=== PATIENT | female | born 1990 | race Caucasian/White ===

== ENCOUNTER 2021-10-26 17:11 | Inpatient (IN) | payer OTHER ==
[~2021-10-26] VITALS: Ht 162.6 cm; Wt 68.2 kg
[2021-10-26] MEDS ORDERED: KETOROLAC TROMETHAMINE 30 MG/ML VIAL IVP ONE (18:15)
[2021-10-26] MEDS ORDERED: ONDANSETRON HCL 4 MG/2 ML VIAL IVP ONE (18:15)
[2021-10-26] MEDS ORDERED: SODIUM CHLORIDE 0.9% 1,000 ML IV ONE (18:15)
[2021-10-26 18:39] LABS: COVID AG,FIA SOURCE NASOPHARYNGEAL
[2021-10-26 18:54] LABS: BASOPHILS % (AUTO) 0.2 % (0.0-2.0); EOSINOPHILS % (AUTO) 0 % (1.0-6.0); HEMATOCRIT 34.6 % (36-46); LYMPHOCYTES # (AUTO) 0.7 K/uL (1.0-4.8); LYMPHOCYTES % (AUTO) 6.6 % (22.0-44.0); MEAN CORPUSCULAR HEMOGLOBIN 24.2 pg (26.0-34.0); MEAN CORPUSCULAR HGB CONC 31.7 G/dL (31.0-37.0); MEAN CORPUSCULAR VOLUME 76 fL (80-100); MONOCYTES # (AUTO) 0.2 K/uL (0.1-1.0); MONOCYTES % (AUTO) 1.7 % (2.0-9.0); NEUTROPHILS # (AUTO) 9.1 K/uL (1.8-7.7); PLATELET COUNT (AUTO) 323 K/uL (150-450); RED BLOOD CELL COUNT(AUTO) 4.53 MIL/uL (4.00-5.20); RED CELL DISTRIBUTION WIDTH 18.2 % (11.5-14.5)
[2021-10-26 19:00] LABS: NEUTROPHILS % (AUTO) 91.5 % (40.0-70.0)
[2021-10-26 19:10] LABS: ANION GAP 12 mmol/L (8-16); CALCIUM, TOTAL 9.4 mg/dL (8.8-10.5); CARBON DIOXIDE 26 mmol/L (22-29); CHLORIDE 101 mmol/L (98-107); GLOMERULAR FILTR. RATE CALC > 60 mL/min (>60); GLUCOSE,RANDOM 85 mg/dL (70-110); POTASSIUM 3.5 mmol/L (3.5-5.1); SODIUM SERUM 139 mmol/L (136-145); UREA NITROGEN, BLOOD 9 mg/dL (7-18)
[2021-10-26 19:15] LABS: ALANINE AMINOTRANSFERASE 22 U/L (12-78); ALBUMIN 3.6 g/dL (3.4-5.0); ALKALINE PHOSPHATASE 79 U/L (46-116); ASPARTATE AMINOTRANSFERASE 20 U/L (15-37); BILIRUBIN,TOTAL 0.3 mg/dL (0.1-1.0); TOTAL PROTEIN, SERUM 7.9 g/dL (6.4-8.2)
[2021-10-26] MEDS ORDERED: ACETAMINOPHEN 325 MG TABLET PO PRN (19:30)
[2021-10-26] MEDS ORDERED: ONDANSETRON HCL 4 MG/2 ML VIAL IVP PRN (19:30)
[2021-10-26] MEDS ORDERED: MAGNESIUM HYDROXIDE SUSPENSION 30 ML UDCUP PO PRN (19:30)
[2021-10-26 22:15] VITALS: BP 122/75
[2021-10-26 23:15] VITALS: BP 145/94
[2021-10-26] MEDS ORDERED: INFLUENZA VIRUS VACCINE QVS 2021-22 (6MO+)/PF 60 MCG/0.5 ML SYRINGE IM. ONE (23:15)
[2021-10-26] MEDS ORDERED: QUET100T PO (23:18)
[2021-10-27] VITALS (7 sets, daily range): BP systolic 131–144; BP diastolic 80–94
[2021-10-27] MEDS: ONDANSETRON HCL 4 MG/2 ML VIAL IVP PRN ×2 (01:45→12:12)
[2021-10-27] MEDS: LORazepam 2 MG/ML VIAL IVP PRN ×2 (01:45→07:38)
[2021-10-27 02:41] LABS: AMPHET/METH SCREEN,URINE POSITIVE (NEGATIVE); BARBITURATE SCREEN, URINE NEGATIVE (NEGATIVE); BENZODIAZEPINES SCREEN,URINE NEGATIVE (NEGATIVE); CANNABINOID SCREEN,URINE NEGATIVE (NEGATIVE); COCAINE SCREEN,URINE NEGATIVE (NEGATIVE); METHADONE SCREEN, URINE NEGATIVE (NEGATIVE); OPIATE SCREEN,URINE NEGATIVE (NEGATIVE)
[2021-10-27 02:46] LABS: PHENCYCLIDINE SCREEN,URINE NEGATIVE (NEGATIVE)
[2021-10-27] MEDS: FAMOTIDINE 20 MG TABLET PO SCH (12:12)
[2021-10-27] MEDS: MULTIVITAMINS WITH MINERALS, THERAPEUTIC TABLET PO SCH (12:13)
[2021-10-27] MEDS ORDERED: SODIUM CHLORIDE 0.9% 1,000 ML IV ONE (18:45)
[2021-10-28] MEDS: ACETAMINOPHEN 325 MG TABLET PO PRN ×5 (00:23→23:54)
[2021-10-28 04:10] VITALS: BP 137/88
[2021-10-28 06:23] LABS: BASOPHILS % (AUTO) 0.4 % (0.0-2.0); EOSINOPHILS % (AUTO) 0.1 % (1.0-6.0); HEMATOCRIT 36.8 % (36-46); LYMPHOCYTES # (AUTO) 1.7 K/uL (1.0-4.8); LYMPHOCYTES % (AUTO) 15.8 % (22.0-44.0); MEAN CORPUSCULAR HEMOGLOBIN 24.8 pg (26.0-34.0); MEAN CORPUSCULAR HGB CONC 32.5 G/dL (31.0-37.0); MEAN CORPUSCULAR VOLUME 76 fL (80-100); MONOCYTES % (AUTO) 9.4 % (2.0-9.0); NEUTROPHILS # (AUTO) 7.8 K/uL (1.8-7.7); NEUTROPHILS % (AUTO) 74.3 % (40.0-70.0); PLATELET COUNT (AUTO) 325 K/uL (150-450); RED BLOOD CELL COUNT(AUTO) 4.82 MIL/uL (4.00-5.20); RED CELL DISTRIBUTION WIDTH 18.5 % (11.5-14.5)
[2021-10-28 06:40] LABS: ALANINE AMINOTRANSFERASE 19 U/L (12-78); ALBUMIN 3.5 g/dL (3.4-5.0); ALKALINE PHOSPHATASE 67 U/L (46-116); ANION GAP 6 mmol/L (8-16); ASPARTATE AMINOTRANSFERASE 15 U/L (15-37); BILIRUBIN,TOTAL 0.3 mg/dL (0.1-1.0); CALCIUM, TOTAL 9.2 mg/dL (8.8-10.5); CARBON DIOXIDE 30 mmol/L (22-29); CHLORIDE 100 mmol/L (98-107); CREATININE 0.77 mg/dL (0.60-1.30); GLOMERULAR FILTR. RATE CALC > 60 mL/min (>60); GLUCOSE,RANDOM 96 mg/dL (70-110); POTASSIUM 3.2 mmol/L (3.5-5.1); SODIUM SERUM 136 mmol/L (136-145); TOTAL PROTEIN, SERUM 7.6 g/dL (6.4-8.2); UREA NITROGEN, BLOOD 6 mg/dL (7-18)
[2021-10-28 08:20] VITALS: BP 133/77
[2021-10-28] MEDS: MULTIVITAMINS WITH MINERALS, THERAPEUTIC TABLET PO SCH (08:22)
[2021-10-28] MEDS: FAMOTIDINE 20 MG TABLET PO SCH (08:22)
[2021-10-28 11:20] VITALS: BP 128/74
[2021-10-28] MEDS ORDERED: POTASSIUM CHLORIDE 20 MEQ ER TABLET PO ONE (14:15)
[2021-10-28] MEDS ORDERED: IBUPROFEN 600 MG TABLET PO PRN (15:30)
[2021-10-28] MEDS: KETOROLAC TROMETHAMINE 15 MG/ML VIAL IVP PRN ×2 (15:39→22:08)
[2021-10-28 16:00] VITALS: BP 128/76
[2021-10-28] MEDS ORDERED: KETOROLAC TROMETHAMINE 15 MG/ML VIAL IVP SCH (18:00)
[2021-10-28] MEDS: LORazepam 2 MG/ML VIAL IVP PRN (18:23)
[2021-10-28 20:35] VITALS: BP 137/85
[2021-10-28] MEDS: ZOLPIDEM TARTRATE 5 MG TABLET PO PRN (22:11)
[2021-10-29 03:41] VITALS: BP 144/84
[2021-10-29] MEDS: KETOROLAC TROMETHAMINE 15 MG/ML VIAL IVP PRN ×3 (04:09→21:10)
[2021-10-29 06:27] LABS: BASOPHILS % (AUTO) 0.6 % (0.0-2.0); EOSINOPHILS % (AUTO) 0.2 % (1.0-6.0); HEMATOCRIT 37.3 % (36-46); HEMOGLOBIN 11.9 g/dL (12.0-16.0); LYMPHOCYTES % (AUTO) 18.2 % (22.0-44.0); MEAN CORPUSCULAR HEMOGLOBIN 24.2 pg (26.0-34.0); MEAN CORPUSCULAR HGB CONC 31.9 G/dL (31.0-37.0); MEAN CORPUSCULAR VOLUME 76 fL (80-100); MONOCYTES # (AUTO) 1.2 K/uL (0.1-1.0); MONOCYTES % (AUTO) 10.5 % (2.0-9.0); NEUTROPHILS # (AUTO) 7.9 K/uL (1.8-7.7); NEUTROPHILS % (AUTO) 70.5 % (40.0-70.0); PLATELET COUNT (AUTO) 317 K/uL (150-450); RED BLOOD CELL COUNT(AUTO) 4.91 MIL/uL (4.00-5.20); RED CELL DISTRIBUTION WIDTH 18.2 % (11.5-14.5)
[2021-10-29 06:56] LABS: ANION GAP 3 mmol/L (8-16); CALCIUM, TOTAL 9.1 mg/dL (8.8-10.5); CARBON DIOXIDE 28 mmol/L (22-29); CHLORIDE 103 mmol/L (98-107); CREATININE 0.77 mg/dL (0.60-1.30); GLOMERULAR FILTR. RATE CALC > 60 mL/min (>60); GLUCOSE,RANDOM 101 mg/dL (70-110); POTASSIUM 3.3 mmol/L (3.5-5.1); SODIUM SERUM 134 mmol/L (136-145); UREA NITROGEN, BLOOD 3 mg/dL (7-18)
[2021-10-29] MEDS: FAMOTIDINE 20 MG TABLET PO SCH (08:39)
[2021-10-29] MEDS: MULTIVITAMINS WITH MINERALS, THERAPEUTIC TABLET PO SCH (08:39)
[2021-10-29] MEDS: LORazepam 2 MG/ML VIAL IVP PRN ×2 (08:40→20:05)
[2021-10-29] MEDS ORDERED: POTASSIUM CHLORIDE 20 MEQ ER TABLET PO PRN (14:45)
[2021-10-29] MEDS ORDERED: SODIUM CHLORIDE 0.9% 250 ML IV ONE (14:58)
[2021-10-29] MEDS: POTASSIUM CHL 10 MEQ/WATER 50 ML IV PRN ×3 (15:01→21:09)
[2021-10-29] MEDS: QUEtiapine FUMARATE 25 MG TABLET PO SCH (16:05)
[2021-10-29 19:30] VITALS: BP 127/77
[2021-10-29] MEDS ORDERED: SODIUM CHLORIDE 0.9% 1,000 ML ONE (19:47)
[2021-10-29] MEDS: ZOLPIDEM TARTRATE 5 MG TABLET PO PRN (23:25)
[2021-10-30] MEDS: KETOROLAC TROMETHAMINE 15 MG/ML VIAL IVP PRN ×2 (04:05→22:31)
[2021-10-30 04:16] VITALS: BP 124/76
[2021-10-30] MEDS: LORazepam 2 MG/ML VIAL IVP PRN ×3 (05:51→19:44)
[2021-10-30 06:17] LABS: BASOPHILS % (AUTO) 0.6 % (0.0-2.0); EOSINOPHILS % (AUTO) 0.6 % (1.0-6.0); HEMATOCRIT 36.7 % (36-46); HEMOGLOBIN 11.7 g/dL (12.0-16.0); LYMPHOCYTES # (AUTO) 2.1 K/uL (1.0-4.8); LYMPHOCYTES % (AUTO) 19.3 % (22.0-44.0); MEAN CORPUSCULAR HEMOGLOBIN 24.3 pg (26.0-34.0); MEAN CORPUSCULAR VOLUME 76 fL (80-100); MONOCYTES # (AUTO) 0.9 K/uL (0.1-1.0); MONOCYTES % (AUTO) 8.3 % (2.0-9.0); NEUTROPHILS # (AUTO) 7.8 K/uL (1.8-7.7); NEUTROPHILS % (AUTO) 71.2 % (40.0-70.0); PLATELET COUNT (AUTO) 298 K/uL (150-450); RED BLOOD CELL COUNT(AUTO) 4.82 MIL/uL (4.00-5.20); RED CELL DISTRIBUTION WIDTH 17.9 % (11.5-14.5)
[2021-10-30 06:39] LABS: ANION GAP 3 mmol/L (8-16); CALCIUM, TOTAL 9.1 mg/dL (8.8-10.5); CARBON DIOXIDE 27 mmol/L (22-29); CHLORIDE 107 mmol/L (98-107); CREATININE 0.81 mg/dL (0.60-1.30); GLOMERULAR FILTR. RATE CALC > 60 mL/min (>60); GLUCOSE,RANDOM 117 mg/dL (70-110); POTASSIUM 3.9 mmol/L (3.5-5.1); SODIUM SERUM 137 mmol/L (136-145); UREA NITROGEN, BLOOD 4 mg/dL (7-18)
[2021-10-30 07:57] VITALS: BP 127/90
[2021-10-30] MEDS: MULTIVITAMINS WITH MINERALS, THERAPEUTIC TABLET PO SCH (10:47)
[2021-10-30] MEDS: QUEtiapine FUMARATE 25 MG TABLET PO SCH (10:47)
[2021-10-30] MEDS: FAMOTIDINE 20 MG TABLET PO SCH (10:47)
[2021-10-30 19:38] VITALS: BP 131/97
[2021-10-30] MEDS: ZOLPIDEM TARTRATE 5 MG TABLET PO PRN (19:44)
[2021-10-31 04:35] VITALS: BP 133/93
[2021-10-31 07:33] VITALS: BP 107/79
[2021-10-31] MEDS: MULTIVITAMINS WITH MINERALS, THERAPEUTIC TABLET PO SCH (08:39)
[2021-10-31] MEDS: FAMOTIDINE 20 MG TABLET PO SCH (08:39)
[2021-10-31] MEDS: QUEtiapine FUMARATE 25 MG TABLET PO SCH (08:39)
[2021-10-31] MEDS: LORazepam 2 MG/ML VIAL IVP PRN (09:04)
[2021-10-31] MEDS: KETOROLAC TROMETHAMINE 15 MG/ML VIAL IVP PRN (15:52)
[2021-10-31] MEDS: ACETAMINOPHEN 325 MG TABLET PO PRN (19:43)
[2021-10-31 19:45] VITALS: BP 133/62
[2021-10-31] MEDS: LORazepam 1 MG TABLET PO PRN (21:50)
[2021-10-31] MEDS: ZOLPIDEM TARTRATE 5 MG TABLET PO PRN (21:50)
[2021-11-01 04:10] VITALS: BP 135/78
[2021-11-01 07:21] LABS: BASOPHILS % (AUTO) 0.6 % (0.0-2.0); EOSINOPHILS % (AUTO) 0.9 % (1.0-6.0); HEMATOCRIT 37.6 % (36-46); HEMOGLOBIN 11.8 g/dL (12.0-16.0); LYMPHOCYTES # (AUTO) 2.4 K/uL (1.0-4.8); LYMPHOCYTES % (AUTO) 17.8 % (22.0-44.0); MEAN CORPUSCULAR HEMOGLOBIN 24.1 pg (26.0-34.0); MEAN CORPUSCULAR HGB CONC 31.5 G/dL (31.0-37.0); MEAN CORPUSCULAR VOLUME 77 fL (80-100); MONOCYTES # (AUTO) 0.9 K/uL (0.1-1.0); MONOCYTES % (AUTO) 6.4 % (2.0-9.0); NEUTROPHILS % (AUTO) 74.3 % (40.0-70.0); PLATELET COUNT (AUTO) 324 K/uL (150-450); RED BLOOD CELL COUNT(AUTO) 4.91 MIL/uL (4.00-5.20); RED CELL DISTRIBUTION WIDTH 18.7 % (11.5-14.5)
[2021-11-01 07:36] LABS: ALANINE AMINOTRANSFERASE 14 U/L (12-78); ALBUMIN 3.1 g/dL (3.4-5.0); ALKALINE PHOSPHATASE 63 U/L (46-116); ANION GAP 7 mmol/L (8-16); ASPARTATE AMINOTRANSFERASE 9 U/L (15-37); BILIRUBIN,TOTAL 0.3 mg/dL (0.1-1.0); CALCIUM, TOTAL 8.9 mg/dL (8.8-10.5); CARBON DIOXIDE 27 mmol/L (22-29); CHLORIDE 103 mmol/L (98-107); CREATININE 0.77 mg/dL (0.60-1.30); GLOMERULAR FILTR. RATE CALC > 60 mL/min (>60); GLUCOSE,RANDOM 111 mg/dL (70-110); POTASSIUM 4.3 mmol/L (3.5-5.1); SODIUM SERUM 137 mmol/L (136-145); TOTAL PROTEIN, SERUM 6.9 g/dL (6.4-8.2); UREA NITROGEN, BLOOD 7 mg/dL (7-18)
[2021-11-01 07:50] VITALS: BP 117/80
[2021-11-01] MEDS: MULTIVITAMINS WITH MINERALS, THERAPEUTIC TABLET PO SCH (08:47)
[2021-11-01] MEDS: FAMOTIDINE 20 MG TABLET PO SCH (08:47)
[2021-11-01] MEDS: QUEtiapine FUMARATE 25 MG TABLET PO SCH (08:47)
[2021-11-01] MEDS: LORazepam 1 MG TABLET PO PRN ×2 (08:53→20:17)
[2021-11-01 15:35] VITALS: BP 121/72
[2021-11-01 19:36] VITALS: BP 136/74
[2021-11-01] MEDS: KETOROLAC TROMETHAMINE 15 MG/ML VIAL IVP PRN (19:41)
[2021-11-01] MEDS: ZOLPIDEM TARTRATE 5 MG TABLET PO PRN (20:17)
[2021-11-01] MEDS: QUEtiapine FUMARATE 100 MG TABLET PO SCH (20:17)
[2021-11-02 04:30] VITALS: BP 128/84
[2021-11-02 08:08] VITALS: BP 111/77
[2021-11-02] MEDS: FAMOTIDINE 20 MG TABLET PO SCH (08:36)
[2021-11-02] MEDS: MULTIVITAMINS WITH MINERALS, THERAPEUTIC TABLET PO SCH (08:36)
[2021-11-02] MEDS: QUEtiapine FUMARATE 25 MG TABLET PO SCH (08:36)
[2021-11-02] MEDS: KETOROLAC TROMETHAMINE 15 MG/ML VIAL IVP PRN (08:38)
[2021-11-02 10:30] LABS: APPEARANCE,URINE CLEAR (CLEAR); BILIRUBIN,URINE NEGATIVE (NEGATIVE); GLUCOSE, URINE (UA) NEGATIVE (NEGATIVE); KETONES,URINE NEGATIVE (NEGATIVE); LEUKOCYTE ESTERASE ,URINE NEGATIVE (NEGATIVE); NITRATE,URINE NEGATIVE (NEGATIVE); OCCULT BLOOD,URINE MODERATE (NEGATIVE); PH,URINE 7.5 (5.0-8.0); PROTEIN,URINE NEGATIVE (NEGATIVE); UROBILINOGEN,URINE 0.2 mg/dL (<=1.0)
[2021-11-02 10:48] LABS: BACTERIA,URINE None Seen /HPF (None Seen); RBC,URINE 0-2 /HPF (0-2); SQUAMOUS EPITHELIAL CELL,UR Few /LPF (None Seen); WBC,URINE None Seen /HPF (0-5)
[2021-11-02] MEDS ORDERED: LOPERAMIDE HCL 2 MG CAPSULE PO PRN (11:45)
[2021-11-02] MEDS ORDERED: ACETAMINOPHEN 325 MG TABLET PO PRN (11:45)
[2021-11-02 12:08] LABS: EOSINOPHILS % (AUTO) 1.7 % (1.0-6.0); HEMATOCRIT 35.5 % (36-46); HEMOGLOBIN 11.5 g/dL (12.0-16.0); LYMPHOCYTES # (AUTO) 1.5 K/uL (1.0-4.8); MEAN CORPUSCULAR HEMOGLOBIN 24.5 pg (26.0-34.0); MEAN CORPUSCULAR HGB CONC 32.3 G/dL (31.0-37.0); MEAN CORPUSCULAR VOLUME 76 fL (80-100); MONOCYTES # (AUTO) 0.6 K/uL (0.1-1.0); MONOCYTES % (AUTO) 6.1 % (2.0-9.0); NEUTROPHILS # (AUTO) 7.5 K/uL (1.8-7.7); NEUTROPHILS % (AUTO) 76.2 % (40.0-70.0); PLATELET COUNT (AUTO) 313 K/uL (150-450); RED BLOOD CELL COUNT(AUTO) 4.68 MIL/uL (4.00-5.20); RED CELL DISTRIBUTION WIDTH 18.1 % (11.5-14.5)
[2021-11-02 12:26] LABS: ALANINE AMINOTRANSFERASE 13 U/L (12-78); ALBUMIN 3.2 g/dL (3.4-5.0); ALKALINE PHOSPHATASE 58 U/L (46-116); ANION GAP 6 mmol/L (8-16); ASPARTATE AMINOTRANSFERASE 10 U/L (15-37); BILIRUBIN,TOTAL 0.3 mg/dL (0.1-1.0); CALCIUM, TOTAL 9.4 mg/dL (8.8-10.5); CARBON DIOXIDE 27 mmol/L (22-29); CHLORIDE 105 mmol/L (98-107); CREATININE 0.71 mg/dL (0.60-1.30); GLOMERULAR FILTR. RATE CALC > 60 mL/min (>60); GLUCOSE,RANDOM 110 mg/dL (70-110); POTASSIUM 4.2 mmol/L (3.5-5.1); SODIUM SERUM 138 mmol/L (136-145); TOTAL PROTEIN, SERUM 6.9 g/dL (6.4-8.2); UREA NITROGEN, BLOOD 10 mg/dL (7-18)
[2021-11-02 15:42] VITALS: BP 103/56
[2021-11-02 19:40] VITALS: BP 130/64
[2021-11-02] MEDS: QUEtiapine FUMARATE 100 MG TABLET PO SCH (20:03)
[2021-11-02] MEDS: ZOLPIDEM TARTRATE 5 MG TABLET PO PRN (20:03)
[2021-11-03] MEDS ORDERED: DiphenhydrAMINE HCL 25 MG CAPSULE PO ONE
[2021-11-03] MEDS: MULTIVITAMINS WITH MINERALS, THERAPEUTIC TABLET PO SCH (08:04)
[2021-11-03] MEDS: QUEtiapine FUMARATE 25 MG TABLET PO SCH (08:04)
[2021-11-03] MEDS: FAMOTIDINE 20 MG TABLET PO SCH (08:04)
[2021-11-03 08:16] VITALS: BP 115/71
[2021-11-03] MEDS ORDERED: RISP2TAB45 PO (10:57)
[2021-11-03] MEDS ORDERED: RISP1TAB48 PO (10:57)
== END 2021-11-03 11:45 | DRG 897 ==
LOC: EMS 17:11 → 6S 20:00
PROVIDERS: ADMIT Internal Medicine; ATTEND Internal Medicine
DX: F11.23 Opioid dependence with withdrawal (principal); R45.851 Suicidal ideations; F31.4 Bipolar disorder, current episode depressed, severe, without psychotic features; R55 Syncope and collapse; F10.139 Alcohol abuse with withdrawal, unspecified; F17.210 Nicotine dependence, cigarettes, uncomplicated; Z20.822 Contact with and (suspected) exposure to COVID-19; F10.10 Alcohol abuse, uncomplicated; Z28.21 Immunization not carried out because of patient refusal
CPT/HCPCS: 80048; 80053; 80307; 81001; 83735; 84145; 84702; 85025; 87045; 93005; 99285; J1885; J2060; J2405; J3480; J7030; J7050

== ENCOUNTER 2021-11-19 15:06 | Inpatient (IN) | payer OTHER ==
[~2021-11-19] VITALS: Ht 162.6 cm; Wt 73.1 kg
[~2021-11-19 15:06] MED LIST: RISP1TAB48 PO; RISP2TAB45 PO
[2021-11-19] MEDS ORDERED: CefTRIAXone SODIUM 2 GM in DEXTROSE 5%-WATER 50 ML IV ONE (16:00)
[2021-11-19 16:29] LABS: BASOPHILS % (AUTO) 0.4 % (0.0-2.0); EOSINOPHILS % (AUTO) 0.5 % (1.0-6.0); HEMATOCRIT 30.4 % (36-46); HEMOGLOBIN 9.7 g/dL (12.0-16.0); LYMPHOCYTES # (AUTO) 1.2 K/uL (1.0-4.8); LYMPHOCYTES % (AUTO) 14.5 % (22.0-44.0); MEAN CORPUSCULAR HEMOGLOBIN 24.6 pg (26.0-34.0); MEAN CORPUSCULAR HGB CONC 31.9 G/dL (31.0-37.0); MEAN CORPUSCULAR VOLUME 77 fL (80-100); MONOCYTES # (AUTO) 0.6 K/uL (0.1-1.0); MONOCYTES % (AUTO) 7.5 % (2.0-9.0); NEUTROPHILS # (AUTO) 6.4 K/uL (1.8-7.7); NEUTROPHILS % (AUTO) 77.1 % (40.0-70.0); PLATELET COUNT (AUTO) 244 K/uL (150-450); RED BLOOD CELL COUNT(AUTO) 3.93 MIL/uL (4.00-5.20); RED CELL DISTRIBUTION WIDTH 18.8 % (11.5-14.5)
[2021-11-19] MEDS ORDERED: KETOROLAC TROMETHAMINE 30 MG/ML VIAL IVP ONE (16:30)
[2021-11-19 17:13] LABS: ANION GAP 9 mmol/L (8-16); CALCIUM, TOTAL 9.1 mg/dL (8.8-10.5); CARBON DIOXIDE 27 mmol/L (22-29); CHLORIDE 108 mmol/L (98-107); CREATININE 0.65 mg/dL (0.60-1.30); GLOMERULAR FILTR. RATE CALC > 60 mL/min (>60); GLUCOSE,RANDOM 99 mg/dL (70-110); POTASSIUM 4.4 mmol/L (3.5-5.1); SODIUM SERUM 144 mmol/L (136-145); UREA NITROGEN, BLOOD 10 mg/dL (7-18)
[2021-11-19 17:20] LABS: ALANINE AMINOTRANSFERASE 50 U/L (12-78); ALKALINE PHOSPHATASE 68 U/L (46-116); ASPARTATE AMINOTRANSFERASE 20 U/L (15-37); BILIRUBIN,TOTAL 0.2 mg/dL (0.1-1.0); TOTAL PROTEIN, SERUM 6.6 g/dL (6.4-8.2)
[2021-11-19] MEDS ORDERED: IOHEXOL 350 MG/ML 100 ML VIAL ONE (17:25)
[2021-11-19] MEDS ORDERED: SODIUM CHLORIDE 0.9% 100 ML ONE (17:25)
[2021-11-19] MEDS ORDERED: AMPICILLIN SODIUM/SULBACTAM NA 3 GM in SODIUM CHLORIDE 0.9% 100 ML IV ONE (18:30)
[2021-11-19] MEDS ORDERED: MethylPREDNISolone SOD SUCC 125 MG/2 ML VIAL IVP ONE (18:30)
[2021-11-19] MEDS ORDERED: MORPHINE SULFATE 4 MG/ML SYRINGE IVP ONE (18:30)
[2021-11-19] MEDS ORDERED: ONDANSETRON HCL 4 MG/2 ML VIAL IVP PRN (18:45)
[2021-11-19] MEDS ORDERED: 0.9% SODIUM CHLORIDE 10 ML SYRINGE IVP PRN (18:45)
[2021-11-19] MEDS ORDERED: ACETAMINOPHEN 325 MG TABLET PO PRN ×2 (18:45→21:30)
[2021-11-19 19:51] LABS: COVID AG,FIA SOURCE NASOPHARYNGEAL
[2021-11-19] MEDS: OxyCODONE HCL/ACETAMINOPHEN 5-325 MG TABLET PO PRN (21:26)
[2021-11-19] MEDS ORDERED: ZOLPIDEM TARTRATE 5 MG TABLET PO PRN (21:30)
[2021-11-19] MEDS ORDERED: MAGNESIUM HYDROXIDE SUSPENSION 30 ML UDCUP PO PRN (21:30)
[2021-11-19] MEDS ORDERED: SODIUM CHLORIDE 0.9% 250 ML IV ONE (22:52)
[2021-11-19 22:56] VITALS: BP 124/73
[2021-11-20] MEDS: OxyCODONE HCL/ACETAMINOPHEN 5-325 MG TABLET PO PRN ×5 (00:28→20:23)
[2021-11-20] MEDS: AMPICILLIN SODIUM/SULBACTAM NA 1.5 GM in SODIUM CHLORIDE 0.9% 50 ML IV SCH ×3 (01:47→17:32)
[2021-11-20 05:05] VITALS: BP 109/62
[2021-11-20 08:04] VITALS: BP 107/57
[2021-11-20] MEDS: FAMOTIDINE 20 MG TABLET PO SCH (08:46)
[2021-11-20] MEDS ORDERED: HydrOXYzine PAMOATE 25 MG CAPSULE PO SCH (09:15)
[2021-11-20] MEDS ORDERED: QUEtiapine FUMARATE 200 MG TABLET PO SCH (09:45)
[2021-11-20] MEDS: HydrOXYzine PAMOATE 25 MG CAPSULE PO SCH ×2 (10:23→16:26)
[2021-11-20] MEDS: QUEtiapine FUMARATE 200 MG TABLET PO SCH ×2 (10:23→21:19)
[2021-11-20 19:35] VITALS: BP 105/52
[2021-11-20] MEDS ORDERED: SODIUM CHLORIDE 0.9% 500 ML IV ONE (20:16)
[2021-11-20] MEDS ORDERED: TraZODone HCL 150 MG TABLET PO SCH (21:00)
[2021-11-20] MEDS: HydrOXYzine PAMOATE 50 MG CAPSULE PO SCH (21:19)
[2021-11-20] MEDS: TraZODone HCL 50 MG TABLET PO SCH (21:19)
[2021-11-20 21:20] VITALS: BP 110/62
[2021-11-21] MEDS: AMPICILLIN SODIUM/SULBACTAM NA 1.5 GM in SODIUM CHLORIDE 0.9% 50 ML IV SCH ×3 (02:02→17:43)
[2021-11-21 04:15] VITALS: BP 101/55
[2021-11-21 07:40] VITALS: BP 103/73
[2021-11-21] MEDS: HydrOXYzine PAMOATE 25 MG CAPSULE PO SCH ×2 (08:12→16:20)
[2021-11-21] MEDS: QUEtiapine FUMARATE 200 MG TABLET PO SCH ×2 (08:12→20:00)
[2021-11-21] MEDS: FAMOTIDINE 20 MG TABLET PO SCH (08:12)
[2021-11-21] MEDS: OxyCODONE HCL/ACETAMINOPHEN 5-325 MG TABLET PO PRN ×3 (08:12→22:48)
[2021-11-21 19:44] VITALS: BP 112/60
[2021-11-21] MEDS: TraZODone HCL 50 MG TABLET PO SCH (20:00)
[2021-11-21] MEDS: HydrOXYzine PAMOATE 50 MG CAPSULE PO SCH (20:00)
[2021-11-21 22:46] VITALS: BP 114/71
[2021-11-21] MEDS ORDERED: SODIUM CHLORIDE 0.9% 500 ML IV ONE (23:17)
[2021-11-22] MEDS: AMPICILLIN SODIUM/SULBACTAM NA 1.5 GM in SODIUM CHLORIDE 0.9% 50 ML IV SCH ×3 (01:47→17:00)
[2021-11-22 05:10] VITALS: BP 98/56
[2021-11-22 07:20] VITALS: BP 97/57
[2021-11-22] MEDS: QUEtiapine FUMARATE 200 MG TABLET PO SCH ×2 (08:19→20:23)
[2021-11-22] MEDS: FAMOTIDINE 20 MG TABLET PO SCH (08:19)
[2021-11-22] MEDS: HydrOXYzine PAMOATE 25 MG CAPSULE PO SCH ×2 (08:19→16:28)
[2021-11-22] MEDS: OxyCODONE HCL/ACETAMINOPHEN 5-325 MG TABLET PO PRN ×2 (08:20→16:28)
[2021-11-22 16:03] VITALS: BP 104/59
[2021-11-22 20:16] VITALS: BP 99/59
[2021-11-22] MEDS: TraZODone HCL 50 MG TABLET PO SCH (20:23)
[2021-11-22] MEDS: HydrOXYzine PAMOATE 50 MG CAPSULE PO SCH (20:23)
[2021-11-23] MEDS: OxyCODONE HCL/ACETAMINOPHEN 5-325 MG TABLET PO PRN ×2 (02:56→08:17)
[2021-11-23] MEDS: AMPICILLIN SODIUM/SULBACTAM NA 1.5 GM in SODIUM CHLORIDE 0.9% 50 ML IV SCH ×2 (02:57→10:27)
[2021-11-23 04:25] VITALS: BP 100/86
[2021-11-23 07:39] VITALS: BP 103/60
[2021-11-23] MEDS: QUEtiapine FUMARATE 200 MG TABLET PO SCH (08:10)
[2021-11-23] MEDS: HydrOXYzine PAMOATE 25 MG CAPSULE PO SCH (08:10)
[2021-11-23] MEDS: FAMOTIDINE 20 MG TABLET PO SCH (08:10)
[2021-11-23] MEDS ORDERED: THIAMINE 100 MG TABLET PO SCH (09:00)
[2021-11-23] MEDS ORDERED: AMOX1TAB16 PO (13:01)
[2021-11-23] MEDS ORDERED: ACET-2247 PO (13:01)
[2021-11-23] MEDS ORDERED: AMOX TR/POT CLAV 875 MG/125 MG TABLET PO SCH (21:00)
== END 2021-11-23 14:15 | DRG 603 ==
LOC: EDBD 15:06 → EMS 15:06 → 6S 16:13
PROVIDERS: ADMIT Internal Medicine; ATTEND Internal Medicine
DX: L03.211 Cellulitis of face (principal); F11.20 Opioid dependence, uncomplicated; K05.10 Chronic gingivitis, plaque induced; F20.9 Schizophrenia, unspecified; K05.30 Chronic periodontitis, unspecified; F43.10 Post-traumatic stress disorder, unspecified; F31.9 Bipolar disorder, unspecified; F41.9 Anxiety disorder, unspecified; F17.210 Nicotine dependence, cigarettes, uncomplicated; F10.10 Alcohol abuse, uncomplicated; Z20.822 Contact with and (suspected) exposure to COVID-19; Y90.9 Presence of alcohol in blood, level not specified; R45.1 Restlessness and agitation; K04.7 Periapical abscess without sinus; Z71.51 Drug abuse counseling and surveillance of drug abuser; Z98.891 History of uterine scar from previous surgery
CPT/HCPCS: 70487; 80053; 84703; 85025; 87040; 99285; J0295; J0696; J1885; J2270; J2930; J7040; J7050; J7060; Q9967

== ENCOUNTER 2021-12-29 00:32 | Emergency (ER) | payer OTHER ==
[~2021-12-29] VITALS: Ht 162.6 cm; Wt 68.0 kg
[~2021-12-29 00:32] MED LIST changes: +ACET-2247 PO; +AMOX1TAB16 PO
[2021-12-29 03:40] VITALS: BP 104/61
== END 2021-12-29 04:00 | disposition home or self-care (01) ==
LOC: EMS 00:32
DX: K04.7 Periapical abscess without sinus (principal); F11.90 Opioid use, unspecified, uncomplicated; F15.90 Other stimulant use, unspecified, uncomplicated; F17.210 Nicotine dependence, cigarettes, uncomplicated; Z79.899 Other long term (current) drug therapy
CPT/HCPCS: 99283; Z7502